=== PATIENT | male | born 1990 | race Caucasian/White ===

== ENCOUNTER 2016-09-10 20:23 | Emergency (ER) | payer MEDICAID ==
[~2016-09-10] VITALS: Ht 175.3 cm; Wt 94.1 kg
[2016-09-10 21:21] VITALS: BP 129/88
== END 2016-09-10 21:37 | disposition home or self-care (01) ==
LOC: EMS 20:27
DX: M54.32 Sciatica, left side (principal); M25.511 Pain in right shoulder; M79.605 Pain in left leg; F17.210 Nicotine dependence, cigarettes, uncomplicated
CPT/HCPCS: 99283

== ENCOUNTER 2018-04-25 14:38 | Emergency (ER) | payer MEDICAID ==
[~2018-04-25] VITALS: Ht 172.7 cm; Wt 71.4 kg
[2018-04-25] MEDS ORDERED: BUPIVACAINE 0.25%/EPI 1:200,000/PF 10 ML VIAL ONE (15:19)
[2018-04-25] MEDS ORDERED: SODIUM CHLORIDE 0.9% 1,000 ML IV ONE (15:30)
[2018-04-25] MEDS ORDERED: KETOROLAC TROMETHAMINE 30 MG/ML VIAL IVP ONE (15:30)
[2018-04-25 15:52] LABS: GLUCOSE, CSF 62 mg/dL (50-80); TOTAL PROTEIN, CSF 25 mg/dL (15-45)
[2018-04-25 15:52] LABS: BASOPHILS % (AUTO) 0.2 % (0.0-2.0); EOSINOPHILS % (AUTO) 0 % (1.0-6.0); HEMATOCRIT 41.5 % (41-53); HEMOGLOBIN 14.9 g/dL (13.5-17.5); LYMPHOCYTES # (AUTO) 0.9 K/uL (1.0-4.8); LYMPHOCYTES % (AUTO) 5.7 % (22.0-44.0); MEAN CORPUSCULAR HEMOGLOBIN 29.9 pg (26.0-34.0); MEAN CORPUSCULAR HGB CONC 35.8 G/dL (31.0-37.0); MEAN CORPUSCULAR VOLUME 84 fL (80-100); MONOCYTES # (AUTO) 1.5 K/uL (0.1-1.0); MONOCYTES % (AUTO) 9.2 % (2.0-9.0); NEUTROPHILS # (AUTO) 13.5 K/uL (1.8-7.7); NEUTROPHILS % (AUTO) 84.9 % (40.0-70.0); PLATELET COUNT (AUTO) 223 K/uL (150-450); RED BLOOD CELL COUNT(AUTO) 4.97 MIL/uL (4.50-5.90); RED CELL DISTRIBUTION WIDTH 13.3 % (11.5-14.5)
[2018-04-25 16:06] LABS: ANION GAP 12 mmol/L (8-16); CALCIUM, TOTAL 8.8 mg/dL (8.8-10.5); CARBON DIOXIDE 24 mmol/L (22-29); CHLORIDE 98 mmol/L (98-107); CREATININE 0.78 mg/dL (0.60-1.30); GLOMERULAR FILTR. RATE CALC > 60 mL/min (>60); GLUCOSE,RANDOM 97 mg/dL (70-110); POTASSIUM 3.3 mmol/L (3.5-5.1); SODIUM SERUM 134 mmol/L (136-145); UREA NITROGEN, BLOOD 10 mg/dL (7-18)
[2018-04-25 16:53] VITALS: BP 107/72
[2018-04-25 17:02] LABS: APPEARANCE,CSF CLEAR (CLEAR); APPEARANCE2,CSF CLEAR (CLEAR); COLOR,CSF COLORLESS (COLORLESS); CSF 2ND TUBE NUMBER 4; CSF TUBE NUMBER 1; LYMPHOCYTES1,CSF 0 %; MONOCYTES1,CSF 0 %; NEUTROPHILS1,CSF 0 %; OTHER CELLS,CSF 0
[2018-04-25 17:03] LABS: COLOR2,CSF COLORLESS (COLORLESS); LYMPHOCYTES2,CSF 0 %; MONOCYTES2,CSF 0 %; NEUTROPHILS2,CSF 0 %; OTHER CELLS,CSF 2ND 0
== END 2018-04-25 18:17 | disposition home or self-care (01) ==
LOC: EMS 14:39
DX: J02.9 Acute pharyngitis, unspecified (principal); R51 Headache; M54.2 Cervicalgia; M79.10 Myalgia, unspecified site; F17.210 Nicotine dependence, cigarettes, uncomplicated
CPT/HCPCS: 36415; 62270; 71045; 80048; 81002; 82945; 84157; 85025; 87070; 87205; 89051; 96374; 99284; 99406; J1885; J3490; J7030